=== PATIENT | female | born 1995 | race American Indian/Alaskan Native ===

== ENCOUNTER 2018-02-12 14:24 | Emergency (ER) | payer MEDICAID ==
[2018-02-12 14:31] VITALS: BP 100/68
[2018-02-12 15:06] LABS: Hematocrit 42.1 % (30.3-42.9); Hemoglobin 14.1 gm/dl (10.1-14.3); Mean Corpuscular HGB Conc 33 % (30-34); Mean Corpuscular Hemoglobin 28 pg (28-32); Mean Corpuscular Volume 85 fl (79-97); Platelet Count 149 K/mm3 (140-440); Red Blood Count 4.98 M/mm3 (3.65-5.03); Red Cell Distribution Width 14.6 % (13.2-15.2)
[2018-02-12 15:26] LABS: BUN/Creatinine Ratio 11; Blood Urea Nitrogen 8 mg/dL (7-17); Calcium 9.1 mg/dL (8.4-10.2); Hemolysis Index 7
[2018-02-12 15:32] LABS: Bilirubin,Urine NEG (Negative); Blood,Urine LG (Negative); Color,Urine Red (Yellow); Mucus,Urine 2+ /HPF; Urobilinogen,Urine < 2.0 mg/dL (<2.0)
[2018-02-12 15:35] LABS: RBC,Urine > 182.0 /HPF (0.0-6.0)
--- NOTE | 2018-02-12 16:37 | Emergency Department Report ---
ED Female HPI - General Chief complaint: Vaginal Bleeding Stated complaint: VAG BLEEDING Time Seen by Provider: 02/12/18 16:09 Source: patient Mode of arrival: Ambulatory Limitations: No Limitations - History of Present Illness Initial comments: 22-year-old female past medical history none presents with complaint of episode of bleeding vaginally since yesterday. Patient states that began 2 days ago lightly then became thick heavy bleeding which has since somewhat subsided. Alert and oriented 3. Denies fevers chills nausea or vomiting. Slight crampy pelvic pain. Patient states she delivered a baby vaginally 7 weeks ago at [facility]. Denies fever chills nausea vomiting chest pain shortness of breath. Awake alert and oriented 3 not in acute distress nontoxic appearing. MD Complaint: vaginal bleeding Onset/Timin -: days(s) Severity: mild Quality: cramping Consistency: intermittent Improves with: none, menstrual period Are you Now?: No Last Menstrual Period: 12/28/17 EDC: 10/04/18 - Related Data Previous Rx's Medication Instructions Recorded Last Taken Type Mv-Min/Iron/Folic/Calcium/Vitk 1 each PO QDAY #1 tablet 02/12/18 Unknown Rx [Women's Daily Formula Tablet] Allergies Allergy/AdvReac Type Severity Reaction Status Date / Time No Known Allergies Allergy Unverified 02/12/18 14:31 ED Review of Systems ROS: Stated complaint: VAG BLEEDING Other details as noted in HPI Constitutional: denies: chills, fever Eyes: denies: eye pain, eye discharge, vision change ENT: denies: ear pain, throat pain Respiratory: denies: cough, shortness of breath, wheezing Cardiovascular: denies: chest pain, palpitations Endocrine: no symptoms reported Gastrointestinal: denies: abdominal pain, nausea, diarrhea Genitourinary: as per HPI, abnormal menses. denies: urgency, dysuria, discharge Musculoskeletal: denies: back pain, joint swelling, arthralgia Skin: denies: rash, lesions Neurological: denies: headache, weakness, paresthesias Psychiatric: denies: anxiety, depression Hematological/Lymphatic: denies: easy bleeding, easy bruising ED Past Medical Hx - Past Medical History Hx Asthma: Yes Additional medical history: vaginal delivery 11/2017 - Surgical History Additional Surgical History: cyst removal from pituitary - Social History Smoking Status: Never Smoker Substance Use Type: None - Medications Home Medications: Home Medications Medication Instructions Recorded Confirmed Last Taken Type Mv-Min/Iron/Folic/Calcium/Vitk 1 each PO QDAY #1 tablet 02/12/18 Unknown Rx [Women's Daily Formula Tablet] ED Physical Exam - General Limitations: No Limitations General appearance: alert, in no apparent distress - Head Head exam: Present: atraumatic, normocephalic - Eye Eye exam: Present: normal appearance, PERRL, EOMI - ENT ENT exam: Present: mucous membranes moist - Neck Neck exam: Present: normal inspection - Respiratory Respiratory exam: Present: normal lung sounds bilaterally. Absent: respiratory distress - Cardiovascular Cardiovascular Exam: Present: regular rate, normal rhythm. Absent: systolic murmur, diastolic murmur, rubs, gallop - GI/Abdominal GI/Abdominal exam: Present: soft, normal bowel sounds - Rectal Rectal exam: Present: deferred - External exam: Present: normal external exam Speculum exam: Present: vaginal bleeding Bi-manual exam: Present: normal bi-manual exam (no cervical motion tenderness or adnexal tenderness on clinical exam) - Extremities Exam Extremities exam: Present: normal inspection - Back Exam Back exam: Present: normal inspection - Neurological Exam Neurological exam: Present: alert, oriented X3 - Psychiatric Psychiatric exam: Present: normal affect, normal mood - Skin Skin exam: Present: warm, dry, intact, normal color. Absent: rash ED Course Vital Signs 02/12/18 14:25 Temperature 98.6 F Pulse Rate 98 H Respiratory 18 Rate Blood Pressure 100/68 O2 Sat by Pulse 97 Oximetry ED Medical Decision Making - Lab Data Result diagrams: 02/12/18 14:45 02/12/18 14:45 - Medical Decision Making A/P: Vaginal/menstrual bleeding 1-ultrasound shows no retained products of conception good ovarian flow. Pelvic exam is unremarkable no cervical motion tenderness or adnexal tenderness. Wet prep is unremarkable, Chlamydia gonorrhea culture sent. NO clinical signs of PID 2-CBC BMP unremarkable, patient is not , 3-emphasized the importance of follow-up with [facility] to the patient's. Hemoglobin and hematocrit stable at this time. Vital signs stable no tachycardia or hypotension suggestive of shock or hemorrhage. Critical care attestation.: If time is entered above; I have spent that time in minutes in the direct care of this critically ill patient, excluding procedure time. ED Disposition Clinical Impression: Vaginal bleeding Disposition: DC-01 TO HOME OR SELFCARE Is pt being admited?: No Does the pt Need Aspirin: No Condition: Stable Instructions: Menstruation (ED), Menorrhagia (ED), Dysmenorrhea (ED) Prescriptions: Mv-Min/Iron/Folic/Calcium/Vitk [Women's Daily Formula Tablet] 1 each PO QDAY #1 tablet Referrals: [facility] [Provider Group] - 3-5 Days Forms: Work/School Release Form(ED) Time of Disposition: 19:05
--- NOTE | 2018-02-12 17:22 | Ultrasound Report ---
FINAL REPORT EXAM: US TRANSVAGINAL HISTORY: 7 weeks post , ? retained POC, pelvic pain TECHNIQUE: Transvaginal and transvesical pelvic sonographic imaging was performed Comparison: None FINDINGS: Uterus is normally anteverted, measuring 8.6 x 4.2 x 5.7 centimeters. Endometrial stripe measures 6.5 millimeters and is within normal limits. Right ovary measures 3.2 x 3.1 x 3.1 centimeters and demonstrates small follicles and normal color flow. Left ovary measures 3.0 x 2.2 x 2.8 centimeters with multiple small follicles and normal color flow. There is no free cul-de-sac fluid. IMPRESSION: Normal transvesical and endovaginal pelvic ultrasound. No retained products of conception identified. Normal endometrial thickness.
--- NOTE | 2018-02-12 17:23 | Ultrasound Report ---
FINAL REPORT EXAM: US PELVIS DUPLEX DOPPLER COMP HISTORY: 7 weeks post pelvic pain, assess ovaries TECHNIQUE: Transvesical and endovaginal pelvic sonographic imaging were performed Comparison: None FINDINGS: Uterus is normally anteverted, measuring 8.6 x 4.2 x 5.7 centimeters. Endometrial stripe measures 6.5 millimeters and is within normal limits. Right ovary measures 3.2 x 3.1 x 3.1 centimeters and demonstrates small follicles and normal color flow. Left ovary measures 3.0 x 2.2 x 2.8 centimeters with multiple small follicles and normal color flow. There is no free cul-de-sac fluid. IMPRESSION: Normal pelvic ultrasound. No retained products of conception identified.
== END 2018-02-12 19:14 | disposition home or self-care (01) ==
LOC: ED 14:24
DX: N93.9 Abnormal uterine and vaginal bleeding, unspecified (principal); J45.909 Unspecified asthma, uncomplicated
CPT/HCPCS: 36415; 76830; 80048; 81001; 84702; 85027; 87210; 87591; 93975; 99284

== ENCOUNTER 2018-12-04 12:48 | Emergency (ER) | payer MEDICAID ==
[2018-12-04] MEDS ORDERED: PROVENTIL IH ONE ×2 (13:05→13:11)
[2018-12-04 13:21] VITALS: BP 119/72
== END 2018-12-04 13:30 | disposition left against medical advice (07) ==
LOC: ED 12:48
DX: R07.89 Other chest pain (principal); Z53.21 Procedure and treatment not carried out due to patient leaving prior to being seen by health care provider